=== PATIENT | male | born 1975 | race Caucasian/White ===

== ENCOUNTER 2018-05-30 05:36 | Inpatient (IN) | payer MEDICAID ==
[~2018-05-30] VITALS: Ht 160 cm; Wt 141.8 kg
[2018-05-30] VITALS (15 sets, daily range): BP systolic 110–200; BP diastolic 51–142
[~2018-05-30 05:36] MED LIST: AMLO10TA PO; ATOR20TA PO; CALC667T5 PO; CARV-49 PO; FENO134C PO; FOL0.4T PO; FOLI0.8T7 PO; FURO80TA87 PO; GLIP5TAB13 PO; HYDR25TA4 PO; LABE200T PO; LISI40TA4 PO; SEVE800T8 PO
[2018-05-30] MEDS ORDERED: LORazepam 2 mg/ml vial IV ONE (05:45)
[2018-05-30 05:58] LABS: BASOPHILS # (AUTO) 0.1 X10'3 (0-0.2); BASOPHILS % (AUTO) 0.3 % (0-1); EOSINOPHILS # (AUTO) 0.4 X10'3 (0-0.9); EOSINOPHILS % (AUTO) 2.2 % (0-6); HEMATOCRIT 34.5 % (42.0-52.0); HEMOGLOBIN 11.6 g/dl (14.0-17.9); LYMPHOCYTES # (AUTO) 1.2 X10'3 (1.1-4.8); LYMPHOCYTES % (AUTO) 7.5 % (21-51); MEAN CORPUSCULAR HEMOGLOBIN 31.1 PG (27.0-31.0); MEAN CORPUSCULAR HGB CONC 33.5 % (33.0-36.5); MEAN PLATELET VOLUME 8.8 FL (7.4-10.4); MONOCYTES # (AUTO) 0.6 X10'3 (0-0.9); MONOCYTES % (AUTO) 3.7 % (2-12); NEUTROPHILS # (AUTO) 13.9 X10'3 (1.8-7.7); NEUTROPHILS % (AUTO) 86.3 % (42-75); PLATELET COUNT 197 X10'3 (140-440); RED BLOOD COUNT 3.71 X10'6 (4.70-6.10); RED CELL DISTRIBUTION WIDTH 14.9 % (11.5-14.5)
[2018-05-30] MEDS ORDERED: albuterol 2.5 MG/3 ML nebule NEB ONE (06:00)
[2018-05-30] MEDS ORDERED: dextrose 50%-water 50ml dispensing syringe IV PRN ×2 (06:10)
[2018-05-30] MEDS ORDERED: acetaminophen 325mg tablet PO PRN (06:10)
[2018-05-30] MEDS ORDERED: glucagon, human recombinant 1mg kit SUBCUT PRN (06:10)
[2018-05-30] MEDS ORDERED: morphine 4 MG/ML inj SYRINge IV PRN (06:10)
[2018-05-30] MEDS: nitroGLYCERIN-Tridil 50MG/D5W 250 ML IV SCH (06:10)
[2018-05-30] MEDS ORDERED: insulin Lispro (HumaLOG) vial - multi-dose SQ SCH (06:10)
[2018-05-30] MEDS ORDERED: dextrose ORAL solution 15 GM/59 ML bottle PO PRN ×2 (06:10)
[2018-05-30] MEDS ORDERED: MESSAGE TO PHARMACY PO ONE (06:10)
[2018-05-30] MEDS ORDERED: nitroGLYCERIN 1gm ointment UD TP ONE (06:10)
[2018-05-30] MEDS ORDERED: ondansetron/PF 4mg/2ml inj IV PRN (06:10)
[2018-05-30 06:14] LABS: ALANINE AMINOTRANSFERASE 24 U/L (12-78); ALBUMIN 3.5 G/DL (3.4-5.0); ALBUMIN/GLOBULIN RATIO 0.7 (1.1-1.5); ALKALINE PHOSPHATASE 63 IU/L (46-116); ANION GAP 16 (8-16); ASPARTATE AMINO TRANSFERASE 17 U/L (10-37); BILIRUBIN,TOTAL 0.6 MG/DL (0.1-1.0); BLOOD UREA NITROGEN 69 MG/DL (7-18); BUN/CREATININE RATIO 4.8 (5.4-32.0); CALCIUM 8.7 MG/DL (8.5-10.1); CHLORIDE 93 MMOL/L (99-107); CREATININE 14.38 MG/DL (0.60-1.10); GLUCOSE 120 MG/DL (70-104); POTASSIUM 5.5 MMOL/L (3.5-5.1); SODIUM 134 MMOL/L (135-145); TOTAL CARBON DIOXIDE 25.3 MMOL/L (24-32); TOTAL PROTEIN 8.5 G/DL (6.4-8.2); eGFR 4 ML/MIN
[2018-05-30 06:23] LABS: INR 1.1 INR; PARTIAL THROMBOPLASTIN TIME 28 SECONDS (22-32); PROTHROMBIN TIME 11.7 SECONDS (9.0-12.0)
[2018-05-30] MEDS ORDERED: ipratropium/albuterol 3ml nebule NEB PRN (06:25)
[2018-05-30] MEDS ORDERED: normal saline 1000ml 250 ML IV PRN (06:47)
[2018-05-30] MEDS ORDERED: LIDOcaine 1% (10mg/ml) 2ml vial SQ ONE (06:50)
[2018-05-30] MEDS ORDERED: heparin 1,000 units/ml 10ml inj IV ONE ×2 (06:50→07:25)
[2018-05-30 07:47] LABS: HEMOGLOBIN A1C 8.4 % (4.5-6.2)
[2018-05-30] MEDS: docusate sod 100mg capsule PO SCH ×2 (08:00→20:57)
[2018-05-30] MEDS: furosemide 40mg tablet PO SCH ×3 (08:00→20:57)
[2018-05-30] MEDS: labetalol 20mg/4ml (5mg/ml) syringe IV PRN ×2 (08:14→13:31)
[2018-05-30] MEDS: heparin, porcine 5000 units/ml vial SQ SCH ×2 (08:44→20:58)
[2018-05-30 09:06] LABS: ABG BASE EXCESS -3.7 mmol/L (-2.0-3.0); ABG HCO3 22.9 mmol/L (22.0-26.0); ABG PCO2 (T) 46.1 mmHg (35.0-48.0); FCOHb 0.7 % (0.5-1.5); FMetHb 0.2 % (0.3-1.12); FO2Hb 97.1 % (94-100); MINUTE VOLUME 21 L/min; PATIENT TEMPERATURE 36.4; RESPIRATORY RATE 18 b/min; RESPIRATORY RATE (OBSERVED) 25 b/min; TIDAL VOLUME 924 mL; TOTAL HEMOGLOBIN 12.4 G/dl (14.0-18.0)
[2018-05-30] MEDS: ipratropium/albuterol 3ml nebule NEB SCH ×3 (10:08→21:07)
[2018-05-30] MEDS ORDERED: insulin glargine (Lantus) pen - multi-dose SQ SCH (21:00)
[2018-05-31] VITALS (20 sets, daily range): BP systolic 144–215; BP diastolic 79–147
[2018-05-31] MEDS: ipratropium/albuterol 3ml nebule NEB SCH ×2 (03:15→09:54)
[2018-05-31] MEDS: labetalol 20mg/4ml (5mg/ml) syringe IV PRN (04:01)
[2018-05-31 04:35] LABS: BASOPHILS % (AUTO) 0 % (0-1); EOSINOPHILS # (AUTO) 0.3 X10'3 (0-0.9); EOSINOPHILS % (AUTO) 2.5 % (0-6); HEMATOCRIT 33.9 % (42.0-52.0); HEMOGLOBIN 11.3 g/dl (14.0-17.9); LYMPHOCYTES # (AUTO) 1.3 X10'3 (1.1-4.8); LYMPHOCYTES % (AUTO) 9.2 % (21-51); MEAN CORPUSCULAR HEMOGLOBIN 31.1 PG (27.0-31.0); MEAN CORPUSCULAR HGB CONC 33.4 % (33.0-36.5); MEAN CORPUSCULAR VOLUME 92.9 FL (78-98); MONOCYTES # (AUTO) 0.5 X10'3 (0-0.9); MONOCYTES % (AUTO) 3.6 % (2-12); NEUTROPHILS # (AUTO) 11.6 X10'3 (1.8-7.7); NEUTROPHILS % (AUTO) 84.7 % (42-75); PLATELET COUNT 193 X10'3 (140-440); RED BLOOD COUNT 3.64 X10'6 (4.70-6.10); RED CELL DISTRIBUTION WIDTH 14.8 % (11.5-14.5); WHITE BLOOD COUNT 13.7 X10'3 (4.5-11.0)
[2018-05-31 04:54] LABS: INR 1.1 INR; PARTIAL THROMBOPLASTIN TIME 33 SECONDS (22-32); PROTHROMBIN TIME 11.5 SECONDS (9.0-12.0)
[2018-05-31 05:00] LABS: ALANINE AMINOTRANSFERASE 26 U/L (12-78); ALBUMIN 3.5 G/DL (3.4-5.0); ALBUMIN/GLOBULIN RATIO 0.8 (1.1-1.5); ALKALINE PHOSPHATASE 56 IU/L (46-116); ANION GAP 15 (8-16); ASPARTATE AMINO TRANSFERASE 20 U/L (10-37); BILIRUBIN,TOTAL 0.6 MG/DL (0.1-1.0); BLOOD UREA NITROGEN 53 MG/DL (7-18); BUN/CREATININE RATIO 5.1 (5.4-32.0); CALCIUM 8.4 MG/DL (8.5-10.1); CHLORIDE 92 MMOL/L (99-107); CREATININE 10.46 MG/DL (0.60-1.10); GLUCOSE 135 MG/DL (70-104); MAGNESIUM 2.4 MG/DL (1.5-2.4); POTASSIUM 5.2 MMOL/L (3.5-5.1); SODIUM 133 MMOL/L (135-145); TOTAL CARBON DIOXIDE 25.9 MMOL/L (24-32); TOTAL PROTEIN 8.1 G/DL (6.4-8.2); eGFR 5 ML/MIN
[2018-05-31] MEDS: nitroGLYCERIN-Tridil 50MG/D5W 250 ML IV SCH (05:00)
[2018-05-31] MEDS ORDERED: amLODIPine 5mg tablet PO ONE (05:00)
[2018-05-31] MEDS ORDERED: labetalol 100mg tablet PO ONE (05:25)
[2018-05-31] MEDS: furosemide 40mg tablet PO SCH (07:10)
[2018-05-31] MEDS: heparin, porcine 5000 units/ml vial SQ SCH (07:12)
[2018-05-31] MEDS: docusate sod 100mg capsule PO SCH (07:31)
[2018-05-31] MEDS ORDERED: labetalol 100mg tablet PO SCH (08:00)
[2018-05-31] MEDS ORDERED: calcium acetate 667mg (PhosLO) capsule PO SCH (08:00)
[2018-05-31] MEDS ORDERED: lisinopril 20mg tablet PO SCH (08:00)
[2018-05-31] MEDS ORDERED: amLODIPine 5mg tablet PO SCH (08:00)
[2018-05-31] MEDS ORDERED: carvedilol 6.25mg tablet PO SCH (08:00)
[2018-05-31] MEDS ORDERED: atorvastatin 20mg tablet PO SCH (08:00)
[2018-05-31] MEDS ORDERED: fenofibrate 145mg tablet PO SCH (08:30)
== END 2018-05-31 13:05 | disposition home or self-care (01) | DRG 133 ==
LOC: ER 05:36 → ED HOLD 06:10 → PCU 3S 07:32
PROVIDERS: ADMIT Internal Medicine Critical Care Medicine; ATTEND Internal Medicine Critical Care Medicine
PROC: 5A1D70Z Performance of Urinary Filtration, Intermittent, Less than 6 Hours Per Day (ICD-10-PCS; principal; 2018-05-30)
PROC: 5A09357 Assistance with Respiratory Ventilation, Less than 24 Consecutive Hours, Continuous Positive Airway Pressure (ICD-10-PCS; 2018-05-30)
DX: J96.20 Acute and chronic respiratory failure, unspecified whether with hypoxia or hypercapnia (principal); J81.0 Acute pulmonary edema; E11.22 Type 2 diabetes mellitus with diabetic chronic kidney disease; N18.6 End stage renal disease; I12.0 Hypertensive chronic kidney disease with stage 5 chronic kidney disease or end stage renal disease; E87.70 Fluid overload, unspecified; Z60.2 Problems related to living alone; E66.9 Obesity, unspecified; Z68.43 Body mass index [BMI] 50.0-59.9, adult; Z99.2 Dependence on renal dialysis; Z99.81 Dependence on supplemental oxygen; Z91.15 Patient's noncompliance with renal dialysis; Z79.84 Long term (current) use of oral hypoglycemic drugs; Z79.899 Other long term (current) drug therapy; Z87.891 Personal history of nicotine dependence; Z83.3 Family history of diabetes mellitus
CPT/HCPCS: 36415; 36600; 71045; 80053; 82803; 82948; 83036; 83605; 83735; 83880; 84145; 84484; 85018; 85025; 85610; 85730; 87040; 87070; 93005; 94640; 94660; 94760; 96374; 96375; 99285; A6402; G0257; J1644; J1815; J2060; J3490; J7030